=== PATIENT | male | born 1990 | race Caucasian/White ===

== ENCOUNTER 2021-10-22 16:09 | Emergency (ER) | payer SELFPAY ==
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
[2021-10-22 16:21] VITALS: BP 178/60; PULSE 117; RESP 16; TEMP 36.8; O2SAT 100
== END 2021-10-22 17:16 | disposition home or self-care (01) ==
PROVIDERS: Emergency Provider Nurse Practitioner Family
DX: S20.211A Contusion of right front wall of thorax, initial encounter (principal); V49.9XXA Car occupant (driver) (passenger) injured in unspecified traffic accident, initial encounter; R01.1 Cardiac murmur, unspecified
CPT/HCPCS: 71101; 99203; G0463

== ENCOUNTER 2022-01-15 14:42 | Emergency (ER) | payer SELFPAY ==
--- NOTE | ~2022-01-15 | XR_ITS ---
XR lumbar spine 2-3V DATE: 01/15/2022 16:04 INDICATION: Mid to low back pain and lump for years TECHNIQUE: AP, lateral, coned lateral lumbosacral views COMPARISON: None FINDINGS: There is mild thoracolumbar levoscoliosis. Normal alignment lumbar spine. No fracture or bone destruction or spondylolisthesis. Mild degenerative disc disease at L5-S1. Lumbar interspaces are well preserved. The lumbar pedicles a re intact. The sacrum joints appear normal. IMPRESSION: Mild thoracolumbar levoscoliosis Mild degenerative disc disease at L5-S1 Reviewed, dictated and finalized at location A.
[2022-01-15 14:53] VITALS: BP 143/84; PULSE 100; RESP 16; TEMP 37.1; O2SAT 99
--- NOTE | 2022-01-15 15:31 | ED.BACK ---
HPI - Back Pain/Injury General Chief Complaint: Back Pain/Injury Stated Complaint: back pain Time Seen by Provider: 01/15/22 15:31 Source: patient Mode of arrival: ambulatory Limitations: no limitations History of Present Illness HPI Narrative: 31 yo M presents with c/o low back pain since yesterday. States he was bending over to pick something off from floorboard of car and felt pop to low back. States he now has painful bump on his spine. Tender on palpation. painful with flexion. ambulatory with steady gait. no radiation of pain into LEs. No weakness or numbness. All systems reviewed and negative except as noted above. Related Data Allergies Allergy/AdvReac Type Severity Reaction Status Date / Time No Known Allergies Allergy Verified 10/22/21 16:36 Review of Systems Review of Systems: CONSTITUTIONAL: Denies fever, chills, or sweats. EYES: Denies visual changes, redness, or discharge. ENT: Denies rhinorrhea, congestion, sore throat, or otalgia. CARDIOVASCULAR: Denies chest pain, palpitations, or edema. RESPIRATORY: Denies cough or dyspnea. GASTROINTESTINAL: Denies abdominal pain, nausea, vomiting, or diarrhea. GENITOURINARY: Denies dysuria or hematuria. SKIN: Denies rash or itching. MUSCULOSKELETAL: Reports low back pain with bump to spine. NEUROLOGIC: Denies headache, numbness, or weakness. PSYCHIATRIC: Denies anxiety or depression. All other systems reviewed are negative, except as documented in HPI. PMFSH Comments At time of signature, agree with nursing past medical, surgical, social and family history. There is no relevant family history pertinent to the presenting complaint. Exam Narrative: GENERAL: This is a well-nourished, well-developed patient, in no apparent distress. HEAD: normocephalic, atraumatic. EYES: PERRL. Sclera clear/white. Vision is grossly intact. EARS: External ears normal NOSE: External nose normal NECK: Neck supple, non-tender without lymphadenopathy, masses or thyromegaly. CARDIOVASCULAR: Regular rate and rhythm without murmurs, gallops, or rubs. RESPIRATORY: Clear to auscultation. Breath sounds equal bilaterally. No wheezes, rales, or rhonchi. SKIN: warm, Dry, intact with no suspicious lesions or rash, good texture and turgor. NEURO: awake, alert, and oriented to person, place and time. There were no obvious focal neurologic abnormalities. EXTREMITIES: No joint tenderness, effusion, or edema noted. BACK: tenderness to L 5 and L 6. ROM intact. No bump or bulging noted as noted by pt. no bruising or skin abnormality. Course Course Level of Care: Express Care Visit Vital Signs Vital signs: Vital Signs Temperature 37.1 C 01/15/22 14:53 Pulse Rate 100 01/15/22 14:53 Respiratory Rate 16 01/15/22 14:53 Blood Pressure 143/84 H 01/15/22 14:53 Pulse Oximetry 99 01/15/22 14:53 Oxygen Delivery Room Air 01/15/22 14:53 Temperature 37.1 C 01/15/22 14:53 Pulse Rate 100 01/15/22 14:53 Respiratory Rate 16 01/15/22 14:53 Blood Pressure 143/84 H 01/15/22 14:53 Pulse Oximetry 99 01/15/22 14:53 Oxygen Delivery Room Air 01/15/22 14:53 reviewed. MDM - Back Pain/Injury MDM Narrative Medical decision making narrative: discussed x-ray results with pt. see discharge plan. no neuro deficits at discharge. Patient is aware of diagnosis, understands and agrees to treatment plan. Anticipatory guidance given. Patient agrees to follow-up as directed and is aware of reasons to seek care at the emergency department. Portions of this record may have been created with voice recognition software Imaging Data My impression: agree with radiologist Radiologist's impression: XR lumbar spine 2-3V DATE: 01/15/2022 16:04 INDICATION: Mid to low back pain and lump for years? TECHNIQUE: AP, lateral, coned lateral lumbosacral views? COMPARISON: None? FINDINGS: There is mild thoracolumbar levoscoliosis. Normal alignment lumbar spine. No fracture or bone dest
[2022-01-15] MEDS: KETOROLAC (*BKC) 60 MG/2 ML VIAL IM (15:47)
== END 2022-01-15 16:43 | disposition home or self-care (01) ==
PROVIDERS: Emergency Provider Nurse Practitioner Family
DX: S39.012A Strain of muscle, fascia and tendon of lower back, initial encounter (principal); M51.37 Other intervertebral disc degeneration, lumbosacral region; X58.XXXA Exposure to other specified factors, initial encounter
CPT/HCPCS: 72100; 96372; 99213; G0463; J1885